=== PATIENT | male | born 1975 | race Caucasian/White ===

== ENCOUNTER 2016-04-10 03:12 | Emergency (ER) | payer SELFPAY ==
[~2016-04-10] VITALS: Ht 177.8 cm; Wt 113.6 kg
[2016-04-10 03:17] VITALS: Ht 177.8 cm; Wt 113.6 kg
[2016-04-10] MEDS ORDERED: ONDANSETRON 4 MG INJ IV STA (03:38)
[2016-04-10] MEDS ORDERED: SOD CHLORIDE 0.9% 1,000 ML IV STA (03:38)
[2016-04-10] MEDS ORDERED: NALOXONE 2 MG SYG IV ONE (04:00)
--- NOTE | 2016-04-10 04:20 | ERD ---
ER Documentation Chief Complaint Date/Time DATE: 04/10/16 TIME: 04:19 Chief Complaint syncope, hit head,lac on head HPI 41-year-old man brought in by EMS for recent drug use and syncopal episode while in the shower. He denies any headache or neck pain, no suicidal homicidal ideation, no fevers or chills, no chest pain or shortness of breath. Patient was transported here by EMS without further complication. ROS All systems reviewed and are negative except as per history of present illness. Allergies Allergies: Coded Allergies: No Known Allergy (Unverified , 04/10/16) PMhx/Soc History of drug use History of Surgery: Yes ("RIGHT SIDE OF STOMACH") Anesthesia Reaction: No Hx Neurological Disorder: No Hx Respiratory Disorders: No Hx Cardiac Disorders: No Hx Psychiatric Problems: No Hx Miscellaneous Medical Probl: No Hx Alcohol Use: Yes Hx Substance Use: Yes Hx Tobacco Use: Yes Smoking Status: Current every day smoker FmHx Family History: No diabetes Physical Exam Vitals Vital Signs Date Time Temp Pulse Resp B/P Pulse Ox O2 Delivery O2 Flow Rate FiO2 04/10/16 03:37 97.6 83 18 200/80 94 Room Air 04/10/16 03:28 Nasal Cannula 2 04/10/16 03:17 97.6 82 18 142/82 94 Physical Exam GENERAL: Well-developed, well-nourished, well-hydrated, lethargic but arousable HEENT: Moist mucous membranes, pink conjunctiva, no cervical spine tenderness or step-off deformities, no goiter, no jaundice or icterus, extraocular movements intact without pain. No submandibular induration, and no pharyngeal erythema NEURO: Alert and oriented 2, cranial nerves II through XII intact bilaterally, pupils equal round reactive to light, no focal deficits or facial asymmetry, sensation intact distally Strength 5/5 in upper and lower extremities bilaterally CARDIAC: Regular rate and rhythm, no murmurs rubs or gallops LUNGS: Clear bilaterally no wheezing crackles or stridor ABDOMEN: Soft nontender, no guarding, no rigidity, no rebound, no psoas sign no obturator sign. Normoactive bowel sounds SKIN: Warm and dry to touch, no abrasions, contusions, or hematomas, no lacerations, no ecchymosis, no target lesions, and without ulcers EXTREMITIES: No clubbing cyanosis or edema, calves are bilaterally symmetrical, no Homans sign, no popliteal cord sign. Distal pulses equal and bilateral PSYCH: Normal affect without agitation or irritability Result Diagram: 04/10/1640904/10/16409 Results 24 hrs Laboratory Tests Test 04/10/16 04:10 Alanine Aminotransferase (ALT/SGPT) Pending Albumin 4.3g/dl Albumin/Globulin Ratio Pending Alkaline Phosphatase Pending Anion Gap Pending Aspartate Amino Transf (AST/SGOT) Pending Basophils # 0.010^3/ul Basophils % 0.5% Blood Urea Nitrogen Pending Calcium Level Pending Carbon Dioxide Level Pending Chloride Level 105mmol/L Creatinine Pending Direct Bilirubin Pending Eosinophils # 0.210^3/ul Eosinophils % 1.7% Globulin Pending Glucose Level Pending Hematocrit 49.5% Hemoglobin 16.7g/dl Indirect Bilirubin Pending Lipase Pending Lymphocytes # 2.510^3/ul Lymphocytes % 27.7% Mean Corpuscular Hemoglobin 30.8pg Mean Corpuscular Hemoglobin Concent 33.8g/dl Mean Corpuscular Volume 91.2fl Mean Platelet Volume 8.6fl Monocytes # 0.610^3/ul Monocytes % 6.3% Neutrophils # 5.910^3/ul Neutrophils % 63.8% Nucleated Red Blood Cells # 0.010^3/ul Nucleated Red Blood Cells % 0.0/100WBC Platelet Count 65028^3/UL Potassium Level 4.0mmol/L Red Blood Count 5.4310^6/ul Red Cell Distribution Width 13.0% Sodium Level 143mmol/L Total Bilirubin Pending Total Protein Pending Troponin I Pending White Blood Count 9.210^3/ul Current Medications Medications (Trade) Dose Ordered Sig/Bradley Route PRN Reason Start Time Stop Time Status Last Admin Dose Admin Ondansetron HCl (Zofran Inj) 4 mg ONCE STAT IV 04/10/16 03:38 04/10/16 03:40 DC 04/10/16 03:47 Naloxone HCl 2 mg 2 mg ONCE ONCE IV 04/10/16 04:00 04/10/16 04:01 DC 04/10/16 03:47 Sodium Chloride 1,000 ml @ 1,000 mls/hr Q1H STAT IV 04/10/16 03:38 1/31/17 04:37 DC 04/10/16 03:47 Sodium Chloride (NS) 1,000 ml @ 1,000 mls/hr Q1H ONCE IV 04/10/16 05:00 04/10/16 05:00 DC Metoprolol Tartrate (Lopressor) 50 mg ONCE ONCE PO 04/10/16 05:00 04/10/16 05:00 DC Procedures/MDM IV line was established patient was placed on cardiac rehabilitation specialist rhythm strip revealed a sinus rhythm at about 70 bpm with upright P and T waves. Patient was afebrile. I administered 1 L normal saline intravenously, naloxone 2 mg IV for suspected heroin overdose, and Zofran 4 mg IV. Mental status did improve a bit and he began to provide a more detailed history, and admitted to using some opioids recently but his drug of choice was cocaine that he used over a day ago. EKG performed, read by me: 72 bpm, normal sinus rhythm, normal axis, no acute ST segment changes, narrow QRS complex, with good R-wave progression in precordial leads. One AP view of the chest performed, read by me reveals no acute infiltrates, normal mediastinum, sharp costophrenic and cardiac borders, no air under the diaphragm. Otherwise unremarkable chest x-ray. CT scan of the brain was performed that was negative for acute bleed mass or shift. CBC and electrolytes were normal, liver function tests were normal, troponin was negative. Differential diagnoses considered, included but not limited to acute coronary syndrome, pulmonary embolism, aortic dissection, abdominal aortic aneurysm, sepsis, stroke, meningitis, encephalitis, pneumonia, appendicitis, cholecystitis , bowel obstruction, pyelonephritis, nephrolithiasis, cystitis, as well as metabolic, hematologic, and electrolyte abnormalities. As well as abscess, cellulitis, fractures, and dislocations. Patient feels much better at this time, and vital signs are normal, symptoms have improved. He is alert and oriented 3 at this time in mental status is at baseline. I did give strict instructions to return to the ED if symptoms continue or worsen, patient will otherwise follow-up with primary care physician. Patient understood instructions and agreed to plan. Departure Diagnosis: Primary Impression: Cocaine abuse Additional Impressions: Syncope Syncope type: unspecified Qualified Code: R55 - Syncope, unspecified syncope type Dehydration Condition: Good AYLA GEORGE MD Apr 10, 2016 04:20
[2016-04-10 04:27] LABS: BASOPHILS % 0.5 % (0.0-2.0); CONDITION 1; EOSINOPHILS # 0.2 10^3/ul (0.0-0.5); EOSINOPHILS % 1.7 % (0.0-7.0); HEMATOCRIT 49.5 % (42.0-52.0); HEMOGLOBIN 16.7 g/dl (14.0-18.0); LYMPHOCYTES # 2.5 10^3/ul (0.8-2.9); LYMPHOCYTES % 27.7 % (15.0-51.0); MEAN CORPUSCULAR HEMOGLOBIN 30.8 pg (29.0-33.0); MEAN CORPUSCULAR HGB CONC 33.8 g/dl (32.0-37.0); MEAN CORPUSCULAR VOLUME 91.2 fl (82.0-101.0); MEAN PLATELET VOLUME 8.6 fl (7.4-10.4); MONOCYTE # 0.6 10^3/ul (0.3-0.9); MONOCYTES % 6.3 % (0.0-11.0); NEUTROPHIL # 5.9 10^3/ul (1.6-7.5); NEUTROPHILS % 63.8 % (39.0-77.0); PLATELET COUNT 250 10^3/UL (140-440); RED BLOOD COUNT 5.43 10^6/ul (4.70-6.10); UNCORRECTED WBC 9.2 10^3/ul (4.8-10.8); WHITE BLOOD COUNT 9.2 10^3/ul (4.8-10.8)
[2016-04-10 04:44] LABS: ALBUMIN 4.3 g/dl (3.3-4.9)
[2016-04-10 04:46] LABS: BILIRUBIN,INDIRECT 0.3 mg/dl (0-1.1); BILIRUBIN,TOTAL 0.3 mg/dl (0.2-1.3); CREATININE 0.98 mg/dl (0.61-1.24)
[2016-04-10 04:47] LABS: ALBUMIN/GLOBULIN RATIO 1.13; TOTAL PROTEIN 8.1 g/dl (6.1-8.1)
[2016-04-10 04:59] LABS: TROPONIN-I 0.013 ng/ml (0.00-0.12)
[2016-04-10] MEDS ORDERED: SOD CHLORIDE 0.9% 1,000 ML IV ONE (05:00)
[2016-04-10] MEDS ORDERED: METOPROLOL 50 MG TAB PO ONE (05:00)
--- NOTE | 2016-04-10 05:14 | RADRPT ---
PROCEDURE: CT BRAIN WITHOUT CONTRAST CLINICAL INDICATION: 41-year-old male with headaches. TECHNIQUE: The study was performed utilizing a [employer] VCT 64-slice CT scanner. Direct axia l sections were obtained from the foramen magnum to the vertex without the use of intravenous contra st material. Sagittal and coronal reformations were obtained. Automated exposure control and iterat stephon reconstruction techniques were utilized for this examination. The images were viewed on a PACS workstation. CTD/vol = 45.0 mGy; Total Exam DLP = 810.3 mGy-cm. COMPARISON: None. FINDINGS: The ventricles have a normal size, shape and position. There is no evidence for mass effect or midl ine shift. There are no intracranial areas of abnormal attenuation. There is no evidence for acute intra or extra-axial blood. The bony calvarium is intact. There is mild mucosal thickening within t he ethmoid air cells bilaterally. No air-fluid levels are noted. The mastoid air cells are without significant soft tissue. IMPRESSION: 1. The intracranial contents are unremarkable on this noncontrast CT scan of the brain. 2. Mild mucosal thickening ethmoid air cells. .Emmanuel Landaverde MD, MD Date Time Electronically viewed and signed by .Emmanuel Landaverde MD, on 04/10/2016 05:14 .M/
--- NOTE | 2016-04-10 05:15 | RADRPT ---
PROCEDURE: CHEST - 1 VIEW CLINICAL INDICATION: 41-year-old male with chest/abdominal pain. TECHNIQUE: A single frontal semi-upright view of the chest was performed portably. The images wer e reviewed on a PACS workstation. COMPARISON: None. FINDINGS: There is a shallow inspiration accentuating the heart size. Accounting for this, the cardiomediasti nal silhouette is mildly enlarged. There is bilateral lower lung zone atelectasis.. There is no ev idence for an infiltrate. There is no evidence for congestive heart failure. There is no evidence f or pneumothorax. The osseous structures are intact. IMPRESSION: 1. Mild cardiomegaly. 2. Shallow inspiration. 3. Mild bilateral lower lung zone subsegmental atelectasis. .Emmanuel Landaverde MD, Date Time Electronically viewed and signed by .Emmanuel Landaverde MD, MD on 04/10/2016 05:15 .M/
[2016-04-10 07:06] VITALS: BP 153/85; PULSE 89; RESP 20; TEMP 98
[2016-04-10 12:46] LABS: ACETAMINOPHEN < 10.0 ug/ml (10.0-30.0); SALICYLATE < 1.0 mg/dl (5.0-30.0)
[2016-04-10 12:56] LABS: BARBITURATES NEGATIVE (NEGATIVE); BENZODIAZEPINES NEGATIVE (NEGATIVE); CANNABINOIDS NEGATIVE (NEGATIVE); COCAINE POSITIVE (NEGATIVE); OPIATES NEGATIVE (NEGATIVE)
[2016-04-10 13:00] LABS: ETHANOL < 10.0 mg/dl
== END 2016-04-10 11:32 | disposition home or self-care (01) ==
LOC: E/R 03:12
DX: F14.10 Cocaine abuse, uncomplicated (principal); R55 Syncope and collapse; F17.210 Nicotine dependence, cigarettes, uncomplicated; E86.0 Dehydration; W22.8XXA Striking against or struck by other objects, initial encounter; Y92.9 Unspecified place or not applicable
CPT/HCPCS: 12002; 36415; 70450; 71010; 80053; 80306; 80307; 83690; 84484; 85025; 93005; 96374; 96375; 99285; J2310; J2405; J7030